=== PATIENT | male | born 1960 | race Caucasian/White ===

== ENCOUNTER → 2019-04-01 | Outpatient (CLI) | payer SELFPAY ==
--- NOTE | 2019-04-01 12:26 | XR ---
Lumbosacral spine HISTORY: Low back pain, sciatica, left leg pain 5 views of lumbosacral spine, no comparisons Loss of disc height with vacuum phenomenon noted at L5-S1. There is multilevel spondylosis. Minimal a nterolisthesis grade 1 L4-5, retrolisthesis grade 1 L3-4. Lumbar vertebral bodies show decreased mine ralization, vertebral body height is normal with exception of some mild anterior wedging at L1 at the inferior endplate. Vacuum disc phenomenon also present at L1-2. Sclerosis is present in the posterio r elements of the lower lumbar spine. No evident spondylolysis. Atherosclerotic calcifications present within the aortoiliac distribution. IMPRESSION: Degenerative disc disease, facet arthropathy.
== END | disposition home or self-care (01) ==
LOC: RADXRYALE 09:24
PROVIDERS: ATTEND Physician Assistant Medical
DX: M51.37 Other intervertebral disc degeneration, lumbosacral region (principal); M46.97 Unspecified inflammatory spondylopathy, lumbosacral region
CPT/HCPCS: 72110

== ENCOUNTER → 2019-09-29 | Outpatient (CLI) | payer SELFPAY ==
--- NOTE | 2019-09-29 23:14 | XR ---
EXAMINATION TYPE: XR Hip Complete LT DATE OF EXAM: 09/29/2019 CLINICAL HISTORY: Left hip pain TECHNIQUE: AP and frogleg views of the left hip are obtained. COMPARISON: None. FINDINGS: There is no acute fracture or dislocation of the left hip. There is mild degenerative gerardo ge with tiny loose bodies seen near the superior acetabulum. Normal osseous mineralization. The overl heather soft tissue appears unremarkable. IMPRESSION: 1. No acute fracture or dislocation of the left hip. 2. Mild degenerative changes with tiny ossific densities near the superior acetabulum.
== END | disposition home or self-care (01) ==
LOC: RADXRYALE 10:21
PROVIDERS: ATTEND Physician Assistant Medical
DX: M16.12 Unilateral primary osteoarthritis, left hip (principal)
CPT/HCPCS: 73502